=== PATIENT | female | born 2000 | race Two or more races ===

== ENCOUNTER 2019-12-25 09:42 | Emergency (ER) | payer MEDICAID ==
[~2019-12-25] VITALS: Ht 157.5 cm; Wt 43.1 kg
[2019-12-25 09:46] VITALS: Ht 157.5 cm; Wt 43.1 kg
[2019-12-25 10:13] LABS: microscopic required? NO
[2019-12-25 10:29] LABS: urine erythrocyte NEGATIVE (NEGATIVE)
[2019-12-25 10:30] LABS: BASOPHIL % 0.3 % (0-2); RED CELL DISTRIBUTION WIDTH 13.6 % (11.5-14.5)
[2019-12-25 10:31] LABS: PLATELET COUNT 664 x10^3mcL (130-400)
[2019-12-25 10:36] LABS: CALCIUM 9.1 mg/dL (8.5-10.1); CARBON DIOXIDE 20.6 mmol/L (21-32); CHLORIDE SERUM 96 mmol/L (98-107); CREATININE SERUM 0.7 mg/dL (0.6-1.0); GFR1 > 60 mL/min; GLUCOSE SERUM 75 mg/dL (74-106); POTASSIUM SERUM 3.6 mmol/L (3.5-5.1); SODIUM SERUM 134 mmol/L (136-145)
[2019-12-25 10:40] LABS: ALBUMIN 4.8 g/dL (3.4-5.0); ALKALINE PHOSPHATASE 41 U/L (46-116); ALT/SGPT 17 U/L (14-59); AST/SGOT 13 U/L (15-37); LIPASE 74 IU/L (73-393)
[2019-12-25 11:04] LABS: TOTAL PROTEIN, SERUM 8.6 g/dL (6.4-8.2)
[2019-12-25 12:10] VITALS: BP 114/75
== END 2019-12-25 12:11 | disposition home or self-care (01) ==
LOC: ED 09:42
PROVIDERS: Emergency Medicine
DX: J32.9 Chronic sinusitis, unspecified (principal); R10.13 Epigastric pain; R11.0 Nausea
CPT/HCPCS: 36415; J8597; Q0162

== ENCOUNTER 2020-10-18 21:53 | Emergency (ER) | payer SELFPAY ==
[~2020-10-18] VITALS: Ht 162.6 cm; Wt 54.4 kg
[2020-10-18 22:10] VITALS: BP 132/64; Ht 162.6 cm; Wt 54.4 kg
== END 2020-10-19 01:09 | disposition home or self-care (01) ==
LOC: ED 21:53
DX: R51.9 Headache, unspecified (principal); R20.2 Paresthesia of skin; R53.1 Weakness
CPT/HCPCS: J1885

== ENCOUNTER 2020-10-20 19:08 | Emergency (ER) | payer SELFPAY ==
[~2020-10-20] VITALS: Ht 160 cm; Wt 44.5 kg
[2020-10-20 19:26] VITALS: Ht 160 cm; Wt 44.5 kg
[2020-10-20 20:52] LABS: CALCIUM 9.4 mg/dL (8.5-10.1); CARBON DIOXIDE 21.9 mmol/L (21-32); CHLORIDE SERUM 100 mmol/L (98-107); CREATININE SERUM 0.7 mg/dL (0.6-1.0); GFR1 > 60 mL/min; GLUCOSE SERUM 109 mg/dL (74-106); POTASSIUM SERUM 3.6 mmol/L (3.5-5.1); SODIUM SERUM 137 mmol/L (136-145)
[2020-10-20 20:56] LABS: BASOPHIL % 0.1 % (0.2-1.3)
[2020-10-20 20:59] LABS: ALBUMIN 4.9 g/dL (3.4-5.0); ALKALINE PHOSPHATASE 38 U/L (46-116); ALT/SGPT 22 U/L (14-59); AST/SGOT 13 U/L (15-37); BILIRUBIN TOTAL 0.7 mg/dL (0.20-1.00); PLATELET COUNT 463 x10^3mcL (179-408); RED CELL DISTRIBUTION WIDTH 15.1 % (12.3-17.7)
[2020-10-20 21:00] LABS: TOTAL PROTEIN, SERUM 8.4 g/dL (6.4-8.2)
[2020-10-21 00:20] VITALS: BP 126/64
== END 2020-10-21 00:20 | disposition home or self-care (01) ==
LOC: ED 19:08
PROVIDERS: Emergency Medicine
DX: U07.1 COVID-19 (principal); N39.0 Urinary tract infection, site not specified; R20.2 Paresthesia of skin; R51.9 Headache, unspecified
CPT/HCPCS: J1885; Q0162; U0003

== ENCOUNTER 2020-12-14 16:28 | Emergency (ER) | payer SELFPAY ==
[~2020-12-14] VITALS: Ht 154.9 cm; Wt 45.4 kg
[2020-12-14 16:30] VITALS: Ht 154.9 cm; Wt 45.4 kg
[2020-12-14 17:55] LABS: AMPHETAMINE QUAL UR NONE DETECTED (See below)
[2020-12-14 18:32] VITALS: BP 115/70
== END 2020-12-14 19:28 | disposition home or self-care (01) ==
LOC: ED 16:28
PROVIDERS: Emergency Medicine
DX: F12.288 Cannabis dependence with other cannabis-induced disorder (principal); Z20.822 Contact with and (suspected) exposure to COVID-19
CPT/HCPCS: Q0162; U0003

== ENCOUNTER 2020-12-17 16:53 | Emergency (ER) | payer SELFPAY ==
[~2020-12-17] VITALS: Ht 162.6 cm; Wt 43.5 kg
[2020-12-17 17:09] VITALS: Ht 162.6 cm; Wt 43.5 kg
[2020-12-17 17:46] LABS: BASOPHIL % 0.5 % (0.2-1.3)
[2020-12-17 17:51] LABS: PLATELET COUNT 477 x10^3mcL (179-408); RED CELL DISTRIBUTION WIDTH 15.5 % (12.3-17.7)
[2020-12-17 17:55] LABS: CALCIUM 9.3 mg/dL (8.5-10.1); CARBON DIOXIDE 12.8 mmol/L (21-32); CHLORIDE SERUM 101 mmol/L (98-107); CREATININE SERUM 0.8 mg/dL (0.6-1.0); GFR1 > 60 mL/min; GLUCOSE SERUM 105 mg/dL (74-106); POTASSIUM SERUM 3.1 mmol/L (3.5-5.1); SODIUM SERUM 135 mmol/L (136-145)
[2020-12-17 17:59] LABS: ALBUMIN 4.6 g/dL (3.4-5.0); ALKALINE PHOSPHATASE 33 U/L (46-116); ALT/SGPT 18 U/L (14-59); AST/SGOT 13 U/L (15-37); BILIRUBIN TOTAL 0.8 mg/dL (0.20-1.00); LIPASE 87 IU/L (73-393); TOTAL PROTEIN, SERUM 7.9 g/dL (6.4-8.2)
[2020-12-17 18:50] VITALS: BP 138/94
== END 2020-12-17 18:50 | disposition home or self-care (01) ==
LOC: ED 16:53
PROVIDERS: Student in an Organized Health Care Education/Training Program
DX: R51.9 Headache, unspecified (principal); Z20.822 Contact with and (suspected) exposure to COVID-19; R11.0 Nausea; R10.13 Epigastric pain; E87.6 Hypokalemia
CPT/HCPCS: J1200; J1885; J2765; J7030; U0003